=== PATIENT | male | born 1990 ===

== ENCOUNTER 2021-03-09 22:33 | Inpatient (IN) | payer BC ==
[~2021-03-09] VITALS: Ht 172.7 cm; Wt 51.8 kg
[2021-03-10 01:23] VITALS: BP 112/57
[2021-03-10] MEDS ORDERED: BUPR300T49 PO (01:54)
[2021-03-10] MEDS ORDERED: PARO20TA98 PO (01:54)
[2021-03-10] MEDS ORDERED: BUPR2TAB PO (02:02)
[2021-03-10] MEDS ORDERED: ONDANSETRON ODT 4 MG PO PRN (02:30)
[2021-03-10] MEDS ORDERED: MIRTAZAPINE 15 MG TAB.RAPDIS PO ONE (02:30)
[2021-03-10] MEDS ORDERED: KETOROLAC 30 MG/1 ML IV PRN (02:30)
[2021-03-10] MEDS ORDERED: POTASSIUM CHLORIDE 20 MEQ TAB.ER.PRT PO ONE (02:30)
[2021-03-10] MEDS: LACTATED RINGERS 1,000 ML IV SCH ×2 (03:01→08:59)
[2021-03-10 03:09] LABS: ANION GAP 5 mmol/L (5-15); CALCIUM 7.7 mg/dL (8.5-10.1); CHLORIDE 108 mmol/L (98-107); CREATININE 0.35 mg/dL (0.7-1.3)
[2021-03-10 07:08] VITALS: BP 112/68
[2021-03-10] MEDS: PAROXETINE 20 MG TABLET PO SCH (08:17)
[2021-03-10] MEDS: ACETAMINOPHEN 325 MG TABLET PO SCH ×3 (08:17→15:26)
[2021-03-10] MEDS: BUPROPION SR 150 MG TABLET PO SCH (08:17)
[2021-03-10] MEDS: BUPRENORPHINE HCL 2 MG TAB.SUBL SL SCH (08:44)
[2021-03-10] MEDS: morphine SULFATE 10 MG/ML, 1ML IVPush PRN ×3 (08:44→20:07)
[2021-03-10] MEDS: ONDANSETRON 2MG/ML, 2ML IVPush PRN ×2 (08:46→20:06)
[2021-03-10] MEDS: SODIUM CHLORIDE 0.9% 1,000 ML IV SCH ×2 (10:42→20:38)
[2021-03-10 10:55] LABS: BASOPHILS % (AUTO) 0 % (0-1); EOSINOPHILS % (AUTO) 1 % (1-7); LYMPHOCYTES % (AUTO) 17 % (22-44); MEAN CORPUSCULAR HEMOGLOBIN 31.3 pg (27.5-34.5); MEAN CORPUSCULAR HGB CONC 33.8 g/dL (33.2-36.2); MEAN PLATELET VOLUME 7.5 fL (7.4-10.4); MONOCYTES % (AUTO) 6 % (2-9); NEUTROPHILS % (AUTO) 76 % (42-75); PLATELET COUNT 222 x10^3/uL (130-400); RED BLOOD COUNT 3.99 x10^6/uL (4.38-5.82); RED CELL DISTRIBUTION WIDTH 13.3 % (9.4-14.8)
[2021-03-10] MEDS ORDERED: POTASSIUM CHLORIDE 40 MEQ in SODIUM CHLORIDE 0.9% 500 ML IV ONE (11:00)
[2021-03-10 12:37] VITALS: BP 110/58
[2021-03-10] MEDS: NICOTINE 21 MG/24 HR PATCH.TD24 TD SCH (17:12)
[2021-03-10 19:29] VITALS: BP 106/64
[2021-03-10] MEDS ORDERED: ACETAMINOPHEN 500 MG TABLET PO SCH (21:00)
[2021-03-11 02:30] VITALS: BP 128/76
[2021-03-11] MEDS ORDERED: LORazepam 2 MG/ML, 1ML IVPush ONE (03:00)
[2021-03-11] MEDS: SODIUM CHLORIDE 0.9% 1,000 ML IV SCH ×4 (03:33→21:08)
[2021-03-11 04:52] LABS: BASOPHILS % (AUTO) 0 % (0-1); EOSINOPHILS % (AUTO) 1 % (1-7); LYMPHOCYTES % (AUTO) 23 % (22-44); MEAN CORPUSCULAR HEMOGLOBIN 31.5 pg (27.5-34.5); MEAN CORPUSCULAR HGB CONC 34.2 g/dL (33.2-36.2); MEAN PLATELET VOLUME 7.9 fL (7.4-10.4); MONOCYTES % (AUTO) 7 % (2-9); NEUTROPHILS % (AUTO) 68 % (42-75); PLATELET COUNT 227 x10^3/uL (130-400); RED BLOOD COUNT 3.98 x10^6/uL (4.38-5.82); RED CELL DISTRIBUTION WIDTH 13.3 % (9.4-14.8)
[2021-03-11 04:59] LABS: ALBUMIN 3.1 g/dL (3.4-5.0); ANION GAP 7 mmol/L (5-15); CALCIUM 7.8 mg/dL (8.5-10.1); CHLORIDE 105 mmol/L (98-107)
[2021-03-11 05:03] LABS: ALANINE AMINOTRANSFERASE 20 U/L (12-78); ALKALINE PHOSPHATASE 90 U/L (45-117); BILIRUBIN,TOTAL 0.5 mg/dL (0.2-1.0); CREATININE 0.43 mg/dL (0.7-1.3); TOTAL PROTEIN 6.1 g/dL (6.4-8.2)
[2021-03-11 06:38] VITALS: BP 109/69
[2021-03-11] MEDS ORDERED: NICOTINE 21 MG/24 HR PATCH.TD24 TD SCH (09:00)
[2021-03-11] MEDS ORDERED: PANTOPRAZOLE 40 MG IV IVPush SCH (09:00)
[2021-03-11] MEDS ORDERED: POTASSIUM PHOSPHATE 44 MEQ in SODIUM CHLORIDE 0.9% 500 ML IV ONE (09:30)
[2021-03-11] MEDS: PAROXETINE 20 MG TABLET PO SCH (10:55)
[2021-03-11] MEDS: BUPROPION SR 150 MG TABLET PO SCH (10:55)
[2021-03-11] MEDS: BUPRENORPHINE HCL 2 MG TAB.SUBL SL SCH (11:12)
[2021-03-11 12:36] VITALS: BP 120/73
[2021-03-11] MEDS: NICOTINE 21 MG/24 HR PATCH.TD24 TD SCH (13:42)
[2021-03-11 21:05] VITALS: BP 118/79
[2021-03-11] MEDS: morphine SULFATE 10 MG/ML, 1ML IVPush PRN (21:07)
[2021-03-12 00:51] VITALS: BP 109/70
[2021-03-12] MEDS: SODIUM CHLORIDE 0.9% 1,000 ML IV SCH ×4 (01:39→16:30)
[2021-03-12 04:41] LABS: BASOPHILS % (AUTO) 0 % (0-1); EOSINOPHILS % (AUTO) 2 % (1-7); LYMPHOCYTES % (AUTO) 29 % (22-44); MEAN CORPUSCULAR HEMOGLOBIN 31.3 pg (27.5-34.5); MEAN CORPUSCULAR HGB CONC 33.9 g/dL (33.2-36.2); MEAN PLATELET VOLUME 7.7 fL (7.4-10.4); MONOCYTES % (AUTO) 8 % (2-9); NEUTROPHILS % (AUTO) 61 % (42-75); PLATELET COUNT 235 x10^3/uL (130-400); RED BLOOD COUNT 4.08 x10^6/uL (4.38-5.82); RED CELL DISTRIBUTION WIDTH 13.2 % (9.4-14.8)
[2021-03-12 04:49] LABS: ALANINE AMINOTRANSFERASE 19 U/L (12-78); ALBUMIN 3.1 g/dL (3.4-5.0); ANION GAP 6 mmol/L (5-15); CALCIUM 7.7 mg/dL (8.5-10.1); CHLORIDE 110 mmol/L (98-107); CREATININE 0.43 mg/dL (0.7-1.3)
[2021-03-12 04:51] LABS: ALKALINE PHOSPHATASE 87 U/L (45-117); BILIRUBIN,TOTAL 0.4 mg/dL (0.2-1.0)
[2021-03-12] MEDS: morphine SULFATE 10 MG/ML, 1ML IVPush PRN ×2 (06:34→12:04)
[2021-03-12 07:10] VITALS: BP 114/73
[2021-03-12] MEDS ORDERED: POTASSIUM CHLORIDE 40 MEQ in SODIUM CHLORIDE 0.9% 500 ML IV ONE (08:00)
[2021-03-12] MEDS: BUPRENORPHINE HCL 2 MG TAB.SUBL SL SCH (09:00)
[2021-03-12 09:34] LABS: CALCIUM 8.3 mg/dL (8.5-10.1); CREATININE 0.42 mg/dL (0.7-1.3)
[2021-03-12 09:57] LABS: ANION GAP 7 mmol/L (5-15); CHLORIDE 107 mmol/L (98-107)
[2021-03-12] MEDS: PANTOPRAZOLE 40MG TABLET PO SCH (10:21)
[2021-03-12] MEDS: PAROXETINE 20 MG TABLET PO SCH (10:21)
[2021-03-12] MEDS: BUPROPION SR 150 MG TABLET PO SCH (10:22)
[2021-03-12] MEDS: NICOTINE 21 MG/24 HR PATCH.TD24 TD SCH (10:22)
[2021-03-12 12:35] VITALS: BP 118/75
[2021-03-12] MEDS ORDERED: HYDR-2214 PO ×2 (15:53)
[2021-03-12] MEDS ORDERED: ONDA4TAB13 PO (15:53)
[2021-03-12] MEDS ORDERED: POLY17PO5 PO (15:53)
[2021-03-12] MEDS: HYDROcodone/APAP 5/325 TABLET PO PRN (18:19)
[2021-03-12] MEDS ORDERED: LORazepam 1MG TABLET PO ONE (20:00)
[2021-03-12 20:06] VITALS: BP 113/72
[2021-03-13 02:51] VITALS: BP 102/65
[2021-03-13] MEDS: HYDROcodone/APAP 5/325 TABLET PO PRN ×2 (02:52→10:27)
[2021-03-13 08:08] VITALS: BP 103/65
[2021-03-13 08:27] LABS: ALBUMIN 3.9 g/dL (3.4-5.0); ANION GAP 7 mmol/L (5-15); CALCIUM 8.6 mg/dL (8.5-10.1); CHLORIDE 104 mmol/L (98-107)
[2021-03-13] MEDS ORDERED: BUPRENORPHINE HCL 2 MG TAB.SUBL SL SCH (09:00)
[2021-03-13] MEDS: NICOTINE 21 MG/24 HR PATCH.TD24 TD SCH ×2 (09:00→10:19)
[2021-03-13 09:43] LABS: ALANINE AMINOTRANSFERASE 19 U/L (12-78); CREATININE 0.55 mg/dL (0.7-1.3)
[2021-03-13 09:45] LABS: ALKALINE PHOSPHATASE 102 U/L (45-117); BILIRUBIN,TOTAL 0.4 mg/dL (0.2-1.0); TOTAL PROTEIN 7.1 g/dL (6.4-8.2)
[2021-03-13] MEDS: PAROXETINE 20 MG TABLET PO SCH (10:19)
[2021-03-13] MEDS: BUPROPION SR 150 MG TABLET PO SCH (10:19)
[2021-03-13] MEDS: PANTOPRAZOLE 40MG TABLET PO SCH (10:19)
[2021-03-13] MEDS ORDERED: HYDROXYZINE PAMOATE 50MG CAP PO PRN (10:30)
[2021-03-13 12:10] VITALS: BP 129/59
[2021-03-13 12:44] LABS: MICROSCOPIC INDICATED
[2021-03-13] MEDS ORDERED: HYDR50CA2 PO (13:02)
[2021-03-13] MEDS ORDERED: HYDR-2214 PO (13:02)
== END 2021-03-13 14:20 | disposition home or self-care (01) | DRG 440 ==
LOC: 3N 03-10 01:12
PROVIDERS: ADMIT Student in an Organized Health Care Education/Training Program; ATTEND Internal Medicine
DX: K85.90 Acute pancreatitis without necrosis or infection, unspecified (principal); E87.6 Hypokalemia; R11.15 Cyclical vomiting syndrome unrelated to migraine; E83.39 Other disorders of phosphorus metabolism; D72.828 Other elevated white blood cell count; F10.10 Alcohol abuse, uncomplicated; F12.90 Cannabis use, unspecified, uncomplicated; F15.959 Other stimulant use, unspecified with stimulant-induced psychotic disorder, unspecified; F17.210 Nicotine dependence, cigarettes, uncomplicated; F32.9 Major depressive disorder, single episode, unspecified; F41.0 Panic disorder [episodic paroxysmal anxiety]; F41.1 Generalized anxiety disorder; R31.29 Other microscopic hematuria; Z86.19 Personal history of other infectious and parasitic diseases; T40.7X5A Adverse effect of cannabis (derivatives), initial encounter; Y92.89 Other specified places as the place of occurrence of the external cause
CPT/HCPCS: 36415; 74018; 76705; 80048; 80053; 81001; 83690; 83735; 84100; 85025; G0378; J1885; J2405; J3480; C9113; J2060; J2270; J7030; J7040; J7120